=== PATIENT | male | born 1945 | race Caucasian/White ===

== ENCOUNTER 2025-05-10 11:44 | Inpatient (IN) | payer MEDICARE ==
[2025-05-10 13:30] LABS: #Basophils Less than 0.03 10x3/uL (0.0-0.2); #Eosinophils 0.12 10x3/uL (0.0-0.7); #Monocytes 1.20 10x3/uL (0.11-0.59); #Neutrophils 11.21 10x3/uL (1.40-6.50); %Basophils 0.1 % (0.0-1.0); %Eosinophils 0.9 % (0.0-10.0); %Lymphocytes 6.0 % (21.0-51.0); %Monocytes 8.9 % (0.0-10.0); %Neutrophils 83.6 % (42.0-75.0); Hematocrit 36.6 % (42.0-52.0); Hemoglobin 12.1 g/dL (14.0-18.0); Mean Corpuscular Hemoglobin 34.6 pg (27.0-31.0); Mean Corpuscular Volume 104.6 fL (78.0-98.0); Platelet Count 146 10x3/uL (130-400); Red Blood Cell (RBC) Count 3.50 mill/uL (4.70-6.10); White Blood Cell (WBC) Count 13.42 10x3/uL (4.8-10.8)
[2025-05-10 13:52] LABS: ALT (SGPT) 12 U/L (Less than 45); AST (SGOT) 20 U/L (11-34); Albumin 3.4 g/dL (3.1-4.5); Alkaline Phosphatase 59 U/L (40-110); Anion Gap 12 mmol/L (10-20); BUN (Urea Nitrogen) 18 mg/dL (8.4-25.7); Bilirubin, Total 1.1 mg/dL (0.3-1.2); CK (CPK) 389 U/L (30-200); Calc. Creatinine Clearance 0 mL/min (70-130); Calcium 9.0 mg/dL (7.8-10.44); Carbon Dioxide 25 mmol/L (23-31); Chloride 104 mmol/L (98-107); Globulin 3.2 g/dL (2.4-3.5); Glucose 129 mg/dL (83-110); Potassium 3.9 mmol/L (3.5-5.1); Sodium 137 mmol/L (136-145); Troponin I Less than 0.010 ng/mL (< 0.028)
[2025-05-10 13:58] LABS: INR-International Normal Ratio 1.2; Prothrombin Time 15.5 sec (12.0-14.7)
[2025-05-10 13:59] LABS: PTT 34.7 sec (22.9-36.1)
[2025-05-10] MEDS ORDERED: Dextrose 50% Abboject 50 ML SYRINGE SLOW IVP PRN (14:28)
[2025-05-10] MEDS ORDERED: Glucagon 1 MG/ML KIT IM PRN (14:28)
[2025-05-10 15:13] LABS: Bacteria/HPF 4+ HPF (None Seen); CAUTI Indications for Culture Alt mental st,lethar; Glucose, Urine (Dipstick) Normal (Negative); Leukocyte 75 Leu/uL (Negative); Protein, Urine (Dipstick) Negative (Neg-Trace); RBC/HPF 0-3 HPF (0-3); Specific Gravity, Urine 1.015 (1.002-1.036)
[2025-05-10 15:14] LABS: Urine Culture Reflex Yes Yes
[2025-05-10] MEDS: hydrALAZINE 20 MG/ML VIAL SLOW IVP PRN (15:59)
[2025-05-10 16:30] VITALS: BMI 34.1
[2025-05-10] MEDS: niCARdipine 25 MG in Sodium Chloride 0.9% 250 ML 250 ML IVPB SCH (17:58)
[2025-05-10] MEDS: Ondansetron PF 4 MG/2 ML Vial IVP PRN (19:49)
[2025-05-11 06:00] LABS: Anion Gap 14 mmol/L (10-20); BUN (Urea Nitrogen) 16 mg/dL (8.4-25.7); Calc. Creatinine Clearance 106 mL/min (70-130); Calcium 8.5 mg/dL (7.8-10.44); Carbon Dioxide 23 mmol/L (23-31); Chloride 105 mmol/L (98-107); Glucose 123 mg/dL (83-110); Potassium 3.4 mmol/L (3.5-5.1); Sodium 139 mmol/L (136-145)
[2025-05-11 06:34] LABS: #Basophils 0.03 10x3/uL (0.0-0.2); #Eosinophils 0.09 10x3/uL (0.0-0.7); #Monocytes 1.16 10x3/uL (0.11-0.59); #Neutrophils 8.98 10x3/uL (1.40-6.50); %Basophils 0.3 % (0.0-1.0); %Eosinophils 0.8 % (0.0-10.0); %Lymphocytes 9.4 % (21.0-51.0); %Monocytes 10.2 % (0.0-10.0); %Neutrophils 78.9 % (42.0-75.0); Hematocrit 36.7 % (42.0-52.0); Hemoglobin 12.1 g/dL (14.0-18.0); Mean Corpuscular Hemoglobin 34.7 pg (27.0-31.0); Mean Corpuscular Volume 105.2 fL (78.0-98.0); Platelet Count 143 10x3/uL (130-400); Red Blood Cell (RBC) Count 3.49 mill/uL (4.70-6.10); White Blood Cell (WBC) Count 11.38 10x3/uL (4.8-10.8)
[2025-05-11] MEDS ORDERED: Non-Formulary Item 1 EACH (Tadalafil [Tadalafil] 10 MG Tablet) PO SCH (09:00)
[2025-05-11] MEDS ORDERED: Non-Formulary Item 1 EACH (Brimonidine Tartrate/Timolol [Brimonidine-Timolol 0.2%-0.5%] 5 EA EYE SCH (09:00)
[2025-05-11 09:34] LABS: Magnesium 1.9 mg/dL (1.6-2.6)
[2025-05-11] MEDS: cefTRIAXone\\ROCEPHIN 1 GM in Sodium Chloride 0.9% 100 ML IVPB SCH (09:58)
[2025-05-11] MEDS: Potassium Chloride 20 MEQ in Premix 1 BAG IVPB SCH (10:00)
[2025-05-11] MEDS: Magnesium 2 GM/50 ML(in water) 2 GM in Premix 1 BAG IVPB SCH (13:00)
[2025-05-11] MEDS: Allopurinol 300 MG TAB PO SCH (13:00)
[2025-05-11] MEDS: Rosuvastatin 10 MG TAB PO SCH (13:00)
[2025-05-11] MEDS: Finasteride 5 MG TAB PO SCH (13:01)
[2025-05-11 14:23] LABS: Potassium 4.1 mmol/L (3.5-5.1)
[2025-05-11] MEDS: Senokot S 8.6-50 MG TAB PO SCH (20:02)
[2025-05-11] MEDS: Acetaminophen 325 MG TAB PO PRN (20:02)
[2025-05-12 04:25] VITALS: TEMP 98.5
[2025-05-12 05:31] LABS: #Basophils 0.03 10x3/uL (0.0-0.2); #Eosinophils 0.16 10x3/uL (0.0-0.7); #Monocytes 1.06 10x3/uL (0.11-0.59); #Neutrophils 7.13 10x3/uL (1.40-6.50); %Basophils 0.3 % (0.0-1.0); %Eosinophils 1.7 % (0.0-10.0); %Lymphocytes 10.8 % (21.0-51.0); %Monocytes 11.2 % (0.0-10.0); %Neutrophils 75.4 % (42.0-75.0); Hematocrit 35.8 % (42.0-52.0); Hemoglobin 11.6 g/dL (14.0-18.0); Mean Corpuscular Hemoglobin 34.2 pg (27.0-31.0); Mean Corpuscular Volume 105.6 fL (78.0-98.0); Platelet Count 152 10x3/uL (130-400); Red Blood Cell (RBC) Count 3.39 mill/uL (4.70-6.10); White Blood Cell (WBC) Count 9.46 10x3/uL (4.8-10.8)
[2025-05-12 05:58] LABS: Anion Gap 10 mmol/L (10-20); BUN (Urea Nitrogen) 19 mg/dL (8.4-25.7); Calc. Creatinine Clearance 109 mL/min (70-130); Calcium 8.5 mg/dL (7.8-10.44); Carbon Dioxide 27 mmol/L (23-31); Chloride 104 mmol/L (98-107); Glucose 118 mg/dL (83-110); Magnesium 2.2 mg/dL (1.6-2.6); Potassium 4.1 mmol/L (3.5-5.1); Sodium 137 mmol/L (136-145)
[2025-05-12] MEDS: Finasteride 5 MG TAB PO SCH (08:11)
[2025-05-12] MEDS: Rosuvastatin 10 MG TAB PO SCH (08:12)
[2025-05-12] MEDS: Brimonidine Tartrate 0.2% Ophth Soln 5 ml Bottle EA EYE SCH (08:12)
[2025-05-12] MEDS: Losartan 25 MG TAB PO SCH (08:12)
[2025-05-12] MEDS: Allopurinol 300 MG TAB PO SCH (08:12)
[2025-05-12 11:40] VITALS: BP 148/70
[2025-05-13] MEDS ORDERED: Cefdinir 300 MG CAP PO SCH (09:00)
== END 2025-05-12 18:00 | disposition home or self-care (01) | DRG 83 ==
LOC: ERS 11:44 → ERHOLD 14:32 → IMCU/EMU 15:18
PROVIDERS: ADMIT Surgery Trauma Surgery; ATTEND Surgery Trauma Surgery
DX: S06.36AA Traumatic hemorrhage of cerebrum, unspecified, with loss of consciousness status unknown, initial encounter (principal); N39.0 Urinary tract infection, site not specified; E03.9 Hypothyroidism, unspecified; E87.5 Hyperkalemia; I10 Essential (primary) hypertension; M10.9 Gout, unspecified; H40.9 Unspecified glaucoma; N40.0 Benign prostatic hyperplasia without lower urinary tract symptoms; E87.6 Hypokalemia; E78.5 Hyperlipidemia, unspecified; E66.9 Obesity, unspecified; B96.20 Unspecified Escherichia coli [E. coli] as the cause of diseases classified elsewhere; R40.2362 Coma scale, best motor response, obeys commands, at arrival to emergency department; R40.2142 Coma scale, eyes open, spontaneous, at arrival to emergency department; R40.2252 Coma scale, best verbal response, oriented, at arrival to emergency department; W19.XXXA Unspecified fall, initial encounter; Z87.442 Personal history of urinary calculi; Z98.890 Other specified postprocedural states; Z79.890 Hormone replacement therapy; Z68.33 Body mass index [BMI] 33.0-33.9, adult
CPT/HCPCS: 36415; 51701; 70450; 71045; 72125; 72128; 72131; 80048; 80053; 81001; 82550; 83735; 84100; 84484; 85025; 85610; 85730; 87077; 87086; 87186; 93005; 93306; 93880; G0390; J0360; J0696; J2405; J3475; J3480; J7050